=== PATIENT | female | born 1950 | race Caucasian/White ===

== ENCOUNTER 2018-10-13 13:04 | Observation (INO) ==
[2018-10-13] MEDS ORDERED: Aspirin 81 MG TAB.CHEW PO ONE (13:23)
[2018-10-13] MEDS ORDERED: Ondansetron 4 MG/2 ML VIAL IVP ONE (13:24)
[2018-10-13 13:42] LABS: Basophils % 0.2 %; Eosinophils # 0.1 K/mcL (0.0-0.6); Eosinophils % 0.6 %; Immature Granulocytes % 0.3 % (0-4); Lymphocytes # 1.1 K/mcL (0.6-4.6); Lymphocytes % 11.4 %; Mean Corpuscular HGB Conc 31.7 g/dL (31.6-35.5); Mean Corpuscular Hemoglobin 28.6 pg (28.0-33.3); Mean Corpuscular Volume 90.1 fL (83.0-100.0); Monocytes # 0.6 K/mcL (0.0-1.3); Monocytes % 6.2 %; Neutrophils # 7.6 K/mcL (1.6-8.9); Platelet Count 301 K/mcL (140-400); Red Blood Count 4.55 M/mcL (3.82-4.97); Red Cell Distribution Width 15.5 % (11.5-14.5); Segmented Neutrophils % 81.3 %; White Blood Count 9.3 K/mcL (4.3-11.1)
[2018-10-13] MEDS: Nitroglycerin 0.4 MG TAB.SUBL SL PRN ×2 (13:42→13:49)
--- NOTE | 2018-10-13 13:48 | Emergency Department Note ---
Disposition Clinical Impression: Chest pain Qualifiers: Chest pain type: unspecified Qualified Code(s): R07.9 - Chest pain, unspecified Disposition: Admitted As Inpatient Condition: Fair Time of Disposition: 15:19 General Adult HPI - General Stated complaint: chest pain Time Seen by Provider: 10/13/18 13:09 Source: patient Limitations: no limitations - History of Present Illness Pain Scale: 4 - Related Data Home Medications Medication Instructions Recorded Confirmed Lisinopril [Zestril] 20 mg PO BID 06/18/15 10/13/18 Albuterol Sulfate [Albuterol 1 puff IH Q4H PRN 03/07/17 10/13/18 Inhaler] Cholecalciferol (D-3) [Vitamin D] 1,000 unit PO DAILY 03/07/17 10/13/18 Furosemide [Lasix] 40 mg PO DAILY 03/07/17 10/13/18 Isosorbide MONOnitrate (24 HR) 120 mg PO DAILY 03/07/17 10/13/18 [Imdur] Allergies Allergy/AdvReac Type Severity Reaction Status Date / Time Cortisone Allergy Dizziness Verified 02/09/16 07:22 Past Medical History - Past Medical History Medical history: Reports: cancer, CHF, CVA, diabetes, hyperlipidemia, hypertension, myocardial infarction, renal disease Surgical history: Reports: appendectomy, cholecystectomy, hip replacement, hyst erectomy, knee replacement, other Psychiatric history: Reports: no psych history - Social History Smoking Status: Never smoker Smokeless Tobacco Status: No Alcohol use: Reports: none Drug use: Reports: none Physical Exam - General Limitations: no limitations General appearance: alert, in no apparent distress Course Vital Signs Temperature 98.7 F 10/13/18 13:12 Pulse Rate 73 10/13/18 13:12 Respiratory Rate 12 10/13/18 13:12 Blood Pressure 155/83 10/13/18 13:12 O2 Sat by Pulse Oximetry 100 10/13/18 13:12 Temperature 98.7 F 10/13/18 13:12 Pulse Rate 59 10/13/18 14:59 Respiratory Rate 14 10/13/18 14:59 Blood Pressure 136/71 10/13/18 14:59 O2 Sat by Pulse Oximetry 100 10/13/18 14:59 Oxygen Delivery Oxygen Delivery Room Air Medical Decision Making - Lab Data Result diagrams: 10/13/18 13:20 10/13/18 13:20 Lab Results 10/13/18 10/13/18 Range/Units 13:20 13:20 WBC 9.3 (4.3-11.1) K/mcL RBC 4.55 (3.82-4.97) M/mcL Hgb 13.0 (11.5-15.4) g/dL Hct 41.0 (35.3-44.9) % MCV 90.1 (83.0-100.0) fL MCH 28.6 (28.0-33.3) pg MCHC 31.7 (31.6-35.5) g/dL RDW 15.5 H (11.5-14.5) % Plt Count 301 (140-400) K/mcL MPV 10.0 (9.4-12.4) fL Immature Gran % 0.3 (0-4) % Seg Neutrophils % 81.3 % Lymphocytes % 11.4 % Monocytes % 6.2 % Eosinophils % 0.6 % Basophils % 0.2 % Neutrophils # 7.6 (1.6-8.9) K/mcL Lymphocytes # 1.1 (0.6-4.6) K/mcL Monocytes # 0.6 (0.0-1.3) K/mcL Eosinophils # 0.1 (0.0-0.6) K/mcL Basophils # 0.0 (0.0-0.2) K/mcL Sodium 140 (136-145) mEq/L Potassium 4.2 (3.5-5.1) mEq/L Chloride 103 (98-107) mEq/L Carbon Dioxide 26 (23-29) mEq/L BUN 22 (8-23) mg/dL Creatinine 1.07 (0.60-1.20) mg/dL Est GFR ( Amer) > 60 (> 60) Est GFR (Non-Af Amer) 51 L (> 60) BUN/Creatinine Ratio 21 (6-26) Glucose 97 (70-105) mg/dL Calculated Osmolality 293 (280-300) Calcium 9.2 (8.6-10.3) mg/dL Total Bilirubin 0.5 (0.3-1.0) mg/dL Direct Bilirubin 0.2 (0.0-0.2) mg/dL Indirect Bilirubin 0.3 (0.0-1.2) mg/dL AST 23 (13-39) Units/L ALT 30 (7-52) Units/L Alkaline Phosphatase 92 (34-104) Units/L Troponin I < 0.03 (< 0.04) ng/mL Serum Total Protein 6.8 (6.4-8.9) g/dL Albumin 4.3 (3.5-5.7) g/dL Globulin 2.5 (2.4-3.5) g/dL Albumin/Globulin Ratio 1.7 (1.1-2.2) Lipase 41 (11-82) Units/L Attestation Statement - Attestation Attestation: I examined this patient and my medical decision-making was reviewed with the Resident Physician. I agree with the documented findings, disposition and treatment plan as described except to the extent set forth below. Patient resisted ED with a chief complaint of chest heaviness. Onset this morning while she was getting ready to go to breakfast with her son. History of an [place]. No stents. States her last was one year ago and she was told that she had small blood vessels. She is in no acute distress on examination with stable vital signs. Heart regular lungs clear. Plan. Cardiac workup. Initial EKG does not show any acute ST segment changes. EKG reviewed with the resident. Cardiac workup unremarkable. Patient was offered nitroglycerin. She is pain- free at this time. Admitted to medicine for further cardiac workup secondary risk Chest X-Ray 10/13/18 13:11 IMPRESSION: Normal chest x-ray D/ / Michele Salvador MD / Michele Salvador MD Interpreting Provider: Michele Salvador MD
--- NOTE | 2018-10-13 13:56 | Emergency Department Note ---
Disposition Clinical Impression: Chest pain Qualifiers: Chest pain type: unspecified Qualified Code(s): R07.9 - Chest pain, unspecified Disposition: Admitted As Inpatient Condition: Fair Referrals: Jhoan Broussard DO [Primary Care Provider] - Time of Disposition: 14:21 General Adult HPI - General Chief complaint: ED Chest Pain Stated complaint: chest pain Time Seen by Provider: 10/13/18 13:09 Source: patient Mode of arrival: ambulatory Limitations: no limitations Nursing Notes Reviewed: Yes Vital Signs Reviewed: Yes - History of Present Illness HPI Narrative: Patient is a 67-year-old female with a past medical history of CHF, cardiac catheterization, HLD, `DM, HTN, and renal disease presents to the ED for evaluation of chest pain that started approximately 3 hours prior to arrival. Patient states that this morning prior to getting a shower she had multiple episodes of nonbloody diarrhea with nausea and then after showering she became diaphoretic with diffuse chest pressure radiating into the left arm and left jaw. She states that her chest pain is worse with exertion and decreases with rest. States that she has had a cardiac catheterization but no stents. Pain Scale: 4 - Related Data Home Medications Medication Instructions Recorded Confirmed Atorvastatin [Lipitor] 40 mg PO DAILY #0 06/18/15 03/07/17 Lisinopril [Zestril] 20 mg PO BID 06/18/15 03/07/17 Propranolol HCl [Inderal LA] 160 mg PO DAILY #0 06/18/15 03/07/17 Multivit-Min/FA/Lycopen/Lutein 1 tab PO DAILY 02/09/16 03/07/17 [Adults 50+ Multivitamin Tablet] [place]-3/Dha/Epa/Fish Oil [Fish Oil 1 cap PO DAILY 02/09/16 03/07/17 1,000 mg Softgel] Albuterol Sulfate [Albuterol 1 puff IH Q4H PRN 03/07/17 03/07/17 Inhaler] Cholecalciferol (D-3) [Vitamin D] 1,000 unit PO DAILY 03/07/17 03/07/17 Furosemide [Lasix] 40 mg PO DAILY 03/07/17 03/07/17 Isosorbide MONOnitrate (24 HR) 120 mg PO DAILY 03/07/17 03/07/17 [Imdur] Lactobacillus Combination No.8 1 cap PO BID 03/07/17 03/07/17 [Adult Probiotic] Potassium Chloride [K-Tab ER] 20 meq PO DAILY 03/07/17 03/07/17 Previous Rx's Medication Instructions Recorded Aspirin 81 mg PO DAILY #30 tab.chew 06/19/15 Allergies Allergy/AdvReac Type Severity Reaction Status Date / Time Cortisone Allergy Dizziness Verified 02/09/16 07:22 All systems ED: reviewed and negative except as stated. Review of Systems: As Per HPI Constitutional: Denies: fever, chills Cardiovascular: Reports: chest pain. Denies: palpitations, dyspnea on exertion, edema, syncope, paroxysmal nocturnal dyspnea Respiratory: Denies: cough, dyspnea, wheezes, sputum production Gastrointestinal: Reports: nausea, diarrhea. Denies: abdominal pain, hematemesis, melena, hematochezia Musculoskeletal: Denies: back pain Past Medical History - Past Medical History Attestation: Yes The following information was validated with the patient. Medical history: Reports: cancer, CHF, CVA, diabetes, hyperlipidemia, hypertension, myocardial infarction, renal disease Surgical history: Reports: appendectomy, cholecystectomy, hip replacement, hysterectomy, knee replacement, other Psychiatric history: Reports: no psych history - Social History Smoking Status: Never smoker Smokeless Tobacco Status: No Alcohol use: Reports: none Drug use: Reports: none Physical Exam CONSTITUTIONAL: Clammy; A&O X 3. HEAD: Normocephalic; atraumatic EYES: PERRL, no scleral icterus NOSE: The nose is normal in appearance without rhinorrhea NECK: No JVD or distended neck veins RESP: Normal chest excursion with respiration; breath sounds clear and equal bilaterally; no wheezes, rhonchi, or rales CARD: Regular rhythm, without murmurs, rub or gallop ABD: Non-distended; non-tender, soft, without rigidity, rebound or guarding,no pulsatile mass CHEST: No pain with palpation SKIN: Normal for age and race; warm and dry without diaphoresis ; no apparent lesions EXTREMITIES: Pulses are 2 plus and equal times 4 extremities, no peripheral edema or calf muscle pain - General Limitations: no limitations General appearance: alert, in no apparent distress Course Course Narrative: Patient will undergo evaluation for chest pain. She reports history of cardiac catheterization with no stents placed. Prior to obtaining the troponin the patient's HEART score is 5 points which is moderate indicating that regardless of the results of the workup patient will require admission. She will receive a full dose of aspirin undergo nitroglycerin trial. Her initial EKG is kae schemic. PE was considered but the patient is not describing any chest pain or heart rate is within normal limits and she has no recent travel, recent surgeries she is not on estrogen and she has no history of blood clots. - Reevaluation(s) Reevaluation #1: Patient's chest pain completely resolved after 2 doses of nitroglycerin. Her lab work was unremarkable. Chest x-ray also unremarkable. Discussed with the patient her risk factors and indications for admission for further evaluation of her chest pain at this time she agrees with that plan. Discussed with the hospitalist on-call and they agree to accept the patient. Time: 14:19 Vital Signs Temperature 98.7 F 10/13/18 13:12 Pulse Rate 73 10/13/18 13:12 Respiratory Rate 12 10/13/18 13:12 Blood Pressure 155/83 10/13/18 13:12 O2 Sat by Pulse Oximetry 100 10/13/18 13:12 Temperature 98.7 F 10/13/18 13:12 Pulse Rate 69 10/13/18 13:48 Respiratory Rate 14 10/13/18 13:22 Blood Pressure 139/97 10/13/18 13:48 O2 Sat by Pulse Oximetry 99 10/13/18 13:22 Oxygen Delivery Oxygen Delivery Room Air Medical Decision Making - Medical Records Medical records reviewed: Yes I reviewed the patient's medical records. - Lab Data Lab results reviewed: Yes I reviewed the patient's lab results. Result diagrams: 10/13/18 13:20 10/13/18 13:20 Lab Results 10/13/18 10/13/18 Range/Units 13:20 13:20 WBC 9.3 (4.3-11.1) K/mcL RBC 4.55 (3.82-4.97) M/mcL Hgb 13.0 (11.5-15.4) g/dL Hct 41.0 (35.3-44.9) % MCV 90.1 (83.0-100.0) fL MCH 28.6 (28.0-33.3) pg MCHC 31.7 (31.6-35.5) g/dL RDW 15.5 H (11.5-14.5) % Plt Count 301 (140-400) K/mcL MPV 10.0 (9.4-12.4) fL Immature Gran % 0.3 (0-4) % Seg Neutrophils % 81.3 % Lymphocytes % 11.4 % Monocytes % 6.2 % Eosinophils % 0.6 % Basophils % 0.2 % Neutrophils # 7.6 (1.6-8.9) K/mcL Lymphocytes # 1.1 (0.6-4.6) K/mcL Monocytes # 0.6 (0.0-1.3) K/mcL Eosinophils # 0.1 (0.0-0.6) K/mcL Basophils # 0.0 (0.0-0.2) K/mcL Sodium 140 (136-145) mEq/L Potassium 4.2 (3.5-5.1) mEq/L Chloride 103 (98-107) mEq/L Carbon Dioxide 26 (23-29) mEq/L BUN 22 (8-23) mg/dL Creatinine 1.07 (0.60-1.20) mg/dL Est GFR ( Amer) > 60 (> 60) Est GFR (Non-Af Amer) 51 L (> 60) BUN/Creatinine Ratio 21 (6-26) Glucose 97 (70-105) mg/dL Calculated Osmolality 293 (280-300) Calcium 9.2 (8.6-10.3) mg/dL Total Bilirubin 0.5 (0.3-1.0) mg/dL Direct Bilirubin 0.2 (0.0-0.2) mg/dL Indirect Bilirubin 0.3 (0.0-1.2) mg/dL AST 23 (13-39) Units/L ALT 30 (7-52) Units/L Alkaline Phosphatase 92 (34-104) Units/L Troponin I < 0.03 (< 0.04) ng/mL Serum Total Protein 6.8 (6.4-8.9) g/dL Albumin 4.3 (3.5-5.7) g/dL Globulin 2.5 (2.4-3.5) g/dL Albumin/Globulin Ratio 1.7 (1.1-2.2) Lipase 41 (11-82) Units/L - Radiology Data Radiology results reviewed: Yes I reviewed the patient's radiology results. Chest X-Ray 10/13/18 13:11 IMPRESSION: Normal chest x-ray D/ / Michele Salvador MD / Michele Salvador MD Interpreting Provider: Michele Salvador MD - EKG Data EKG #1 EKG attestation: Yes I reviewed and interpreted this EKG. EKG results narrative: EKG done at 13:34 shows sinus rhythm at a rate of 64 bpm. Normal axis. Intervals within normal limits. No signs of ST elevation, ST depression or Q waves present. Unchanged from prior EKG in February 2017
[2018-10-13 14:04] LABS: Alanine Aminotransferase 30 Units/L (7-52); Albumin 4.3 g/dL (3.5-5.7); Albumin/Globulin Ratio 1.7 (1.1-2.2); Alkaline Phosphatase 92 Units/L (34-104); Aspartate Amino Transferase 23 Units/L (13-39); BUN/Creatinine Ratio 21 (6-26); Bilirubin,Direct 0.2 mg/dL (0.0-0.2); Bilirubin,Indirect 0.3 mg/dL (0.0-1.2); Bilirubin,Total 0.5 mg/dL (0.3-1.0); Blood Urea Nitrogen 22 mg/dL (8-23); Calcium 9.2 mg/dL (8.6-10.3); Carbon Dioxide 26 mEq/L (23-29); Chloride 103 mEq/L (98-107); Globulin 2.5 g/dL (2.4-3.5); Glucose 97 mg/dL (70-105); Lipase 41 Units/L (11-82); Osmolality,Calculated 293 (280-300); Potassium 4.2 mEq/L (3.5-5.1); Sodium 140 mEq/L (136-145); Total Protein 6.8 g/dL (6.4-8.9); Troponin I < 0.03 ng/mL (< 0.04); eGFR For African Americans > 60 (> 60); eGFR For Non-African Americans 51 (> 60)
--- NOTE | 2018-10-13 16:31 | Internal Med History&Physical ---
Date of Encounter: 10/13/18 Time of Encounter: 16:12 Internal Medicine - H&P: HPI Chief complaint: chest pain Admitted From: Home Plans for Post Hospital Care: Home History of present illness: Ms. Brooks is a 67 year old female pats medical HTN, HLD, Diabetes type II, Obesity, never smoked, CKD, CHF (One time 4 years ago), [place] (pt states she was told here in the ED years ago that she has had an [place]), denies prior history of stents. Pt presented with complaint of chest pain. at bedside. Pt states she was fine after a shower this morning. States when she got out of the shower she started feeling sick and dizzy. Then chest started hurting which radiated into her left arm, up into her jaw and teeth and states " I just couldn't seem to shake it." She describes chest sensation as a pressure and states " not really pain." States sensation in the her neck and arm was painful. Pain scale rated 7/10 at it's worst but barely there now states about 1-2/10. She reports being SOB " a little." States she was also diaphoretic. Pt states she took her blood pressure medications this morning. States she stopped taking ASA begging it "tore up her stomach." Reports having history of ulcers. She states she recently had her cholesterol medication changed. Pt also reports having diarrhea and feeling nauseous. States she had abdominal tenderness across her mid abdomen. She denies having any fever or chills. She denies having any blood in her stool. Denies dysuria, urinary urgency but denies frequency. In ED She states Nitro given in the emergency department helped relieve her pain. WBC 9.3, Hgb 13.0, Hct 41.0, plt 301. Na 140, K 4.2, BUN 22, Cr 1.07. Troponin <0.03 LFT's normal, Lipase 41. Past Med Surg Social Fam HX - Past Medical History Medical history: cancer, CHF, CVA, diabetes, hyperlipidemia, hypertension, myocardial infarction, renal disease Psychiatric history: no psych history - Past Surgical History Surgical History: appendectomy, cholecystectomy, hip replacement, hysterectomy, knee replacement, other Additional surgical history: spine surgery - Social History Smoking Status: Never smoker Smokeless Tobacco Status: No Alcohol use: none Drug use: none - Family History Mother Hx Family Cardiac Disorders: Yes ([place], HTN) Hx Family Cancer: Yes (Bone) Hx Family Endocrine Disorder: Yes (DM) Father Hx Family Cardiac Disorders: Yes (Stroke) Hx Family Cancer: Yes (Lung) Internal Medicine - H&P: Meds Lisinopril [Zestril] 20 mg PO BID 06/18/15 [History] Albuterol Sulfate [Albuterol Inhaler] 1 puff IH Q4H PRN 03/07/17 [History] Cholecalciferol (D-3) [Vitamin D] 1,000 unit PO DAILY 03/07/17 [History] Furosemide [Lasix] 40 mg PO DAILY 03/07/17 [History] Isosorbide MONOnitrate (24 HR) [Imdur] 120 mg PO DAILY 03/07/17 [History] Atorvastatin [Lipitor] 40 mg PO HS 10/13/18 [History] Desvenlafaxine [Desvenlafaxine ER] 100 mg PO DAILY 10/13/18 [History] Diltiazem CD (24hr) [Cardizem CD] 180 mg PO DAILY 10/13/18 [History] Allergy/AdvReac Type Severity Reaction Status Date / Time Cortisone Allergy Dizziness Verified 02/09/16 07:22 All Systems PM: A 10-system review of systems was performed and is negative for pertinent findings except as documented above in the HPI. - Constitutional Vitals: Temp Pulse Resp BP Pulse Ox 98.7 F 59 14 136/71 100 10/13/18 13:12 10/13/18 14:59 10/13/18 14:59 10/13/18 14:59 10/13/18 14:59 General appearance: Present: A&O X 3, no acute distress, obese Exam: . - Head Head exam: Present: atraumatic, normocephalic - Eye Eye exam: Present: PERRL, conjuntiva pink, sclera anicteric Pupils: Present: PERRL - Neck Neck exam general surgery: Present: supple, trachea midline. Absent: lymphadenopathy - Respiratory Respiratory exam: Present: CTAB. Absent: accessory muscle use, rales, rhonchi, wheezes - Cardiovascular Cardiovascular exam: Present: RRR, +S1, +S2. Absent: diastolic murmur, gallop, rubs, systolic murmur - GI/Abdominal GI/Abdominal exam: Present: normal bowel sounds, soft, no peritoneal signs. Absent: distended, tenderness - Extremities Exam Extremities exam: Present: pedal edema, warm, radial pulses palpable and symmetrical. Absent: calf tenderness, cyanotic - Neurological Exam Neurological exam: Present: CN II-XII intact, oriented X3, no focal deficits. Absent: pronater drift, facial droop, speech deficit - Skin Skin exam: Present: dry, intact Internal Med - H&P Results - Labs CBC & Chem 7: 10/13/18 13:20 10/13/18 13:20 Labs: Short CBC 10/13/18 Range/Units 13:20 WBC 9.3 (4.3-11.1) K/mcL Hgb 13.0 (11.5-15.4) g/dL Hct 41.0 (35.3-44.9) % Plt Count 301 (140-400) K/mcL Neutrophils # 7.6 (1.6-8.9) K/mcL BMP 10/13/18 13:20 Sodium 140 Potassium 4.2 Chloride 103 Carbon Dioxide 26 BUN 22 Creatinine 1.07 Glucose 97 Calcium 9.2 Cardiac Enzymes 10/13/18 Range/Units 13:20 Troponin I < 0.03 (< 0.04) ng/mL Liver Function 10/13/18 Range/Units 13:20 Total Bilirubin 0.5 (0.3-1.0) mg/dL Direct Bilirubin 0.2 (0.0-0.2) mg/dL AST 23 (13-39) Units/L ALT 30 (7-52) Units/L Alkaline Phosphatase 92 (34-104) Units/L Albumin 4.3 (3.5-5.7) g/dL - Impressions ITS Impressions Chest X-Ray 10/13/18 13:11 IMPRESSION: Normal chest x-ray D/ / Michele Salvador MD / Michele Salvador MD Interpreting Provider: Michele Salvador MD - Assessment and Plan (1) Chest pain Current Visit: Yes Status: Acute Assessment and plan: Troponin <0.03. Will cycle troponin. EKG showed VR [address] or T wave abnormalities. She states she has had multiple stress test in the past that have been negative. Per cardiology note in 2016, Has chronic underlying chest pain. Appears to have failed Ranexa therapy in the past for suspected microvascular disease. She has also been seen in [place] at [facility] before. At [facility] 2017 neg and Echo 2016 normal, results below. Given ASA 324 mg PO x one in ED. She states ASA tears up her stomach so she stopped taking it. Will hold off on any more ASA for now. Will place on telemetry for close monitoring. Nitro SL PRN. Will check D dimer. Heart cath 03/07/17 Impressions: Coronary arteries are angiographically normal. The left ventricle is normal and has normal contractility EF 65% Coronary Dominance: right Lesion Findings/Interventions * Left Main Coronary Artery The LMCA is angiographically free of disease. * Left Anterior Descending The LAD is angiographically free of disease. Mid/distal LAD small vessel. The 1st Diagonal is angiographically free of disease. * Circumflex The Circumflex is angiographically free of disease. The 1st Marginal is angiographically free of disease. * Right Coronary Artery The RCA is angiographically free of disease. The Right PDA is angiographically free of disease. Echo 02/09/16 Impressions: Normal LV chamber size, wall thickness, and systolic function. LVEF 60%. Normal right ventricular structure and function. No significant valvular dysfunction. Unable to estimate RVSP due to lack of TR jet. Qualifiers: Chest pain type: unspecified Qualified Code(s): R07.9 - Chest pain, unspecified (2) HTN (hypertension) Current Visit: No Status: Chronic Assessment and plan: Pt's BP elevated in ED and could possibly contribute to CP Need her medications clarified with her pharmacy. Diltiazem, Lisinopril, imdur Qualifiers: Hypertension type: essential hypertension Qualified Code(s): I10 - [place] l (primary) hypertension (3) Diabetes type 2, controlled Current Visit: Yes Status: Acute Assessment and plan: Pt states she is on Trulicity for this. Not listed on home med list. Glucose 97. Hgb A1C 6.1, 05/04/18 Will check hgb A1c. Will hold off on Insulin for now Will place on diabetic diet and monitor glucose BID. Qualifiers: Qualified Code(s): E11.9 - Type 2 diabetes mellitus without complications (4) CKD (chronic kidney disease) Current Visit: No Status: Chronic Assessment and plan: Cr 1.07 and stable. Will monitor PRN Qualifiers: Chronic kidney disease stage: stage 3 (moderate) Qualified Code(s): N18.3 - Chronic kidney disease, stage 3 (moderate) (5) Edema Current Visit: Yes Status: Acute Assessment and plan: On Lasix Qualifiers: Qualified Code(s): R60.9 - Edema, unspecified - Time Spent With Patient Total time spent is greater than 50% in coordination of care (as documented) at patient's floor/unit and/or counseling patient: less than 15 minutes
[2018-10-13] MEDS ORDERED: Nitroglycerin 0.4 MG TAB.SUBL SL PRN (16:56)
[2018-10-13] MEDS ORDERED: D5% in Water 1,000 ML IVC PRN (17:57)
[2018-10-13] MEDS ORDERED: *HR* Dextrose 50 % in Water (Syg) 50 ML SYRINGE IVP PRN (17:57)
[2018-10-13] MEDS ORDERED: Dextrose Gel 15 GM/37.5 ML TUBE PO PRN ×2 (17:57)
[2018-10-13] MEDS: Insulin LISPRO 300 UNITS/3 ML VIAL SQ SCH (18:48)
[2018-10-14] MEDS: Insulin LISPRO 300 UNITS/3 ML VIAL SQ SCH ×4 (01:31→17:01)
[2018-10-14 02:39] LABS: Basophils % 0.3 %; Eosinophils # 0.1 K/mcL (0.0-0.6); Eosinophils % 1.4 %; Hematocrit 36.8 % (35.3-44.9); Hemoglobin 11.6 g/dL (11.5-15.4); Immature Granulocytes % 0.3 % (0-4); Lymphocytes # 1.5 K/mcL (0.6-4.6); Lymphocytes % 18.8 %; Mean Corpuscular HGB Conc 31.5 g/dL (31.6-35.5); Mean Corpuscular Hemoglobin 28.2 pg (28.0-33.3); Mean Corpuscular Volume 89.5 fL (83.0-100.0); Mean Platelet Volume 10.3 fL (9.4-12.4); Monocytes # 0.6 K/mcL (0.0-1.3); Monocytes % 7.5 %; Neutrophils # 5.6 K/mcL (1.6-8.9); Platelet Count 261 K/mcL (140-400); Red Blood Count 4.11 M/mcL (3.82-4.97); Red Cell Distribution Width 15.6 % (11.5-14.5); Segmented Neutrophils % 71.7 %; White Blood Count 7.8 K/mcL (4.3-11.1)
[2018-10-14 02:47] LABS: Prothrombin Time 11.5 Seconds (9.4-12.1)
[2018-10-14 02:59] LABS: Albumin 3.7 g/dL (3.5-5.7); Albumin/Globulin Ratio 1.7 (1.1-2.2); Bilirubin,Total 0.4 mg/dL (0.3-1.0); Chol/HDL Ratio 2.4 (0-4.9); Globulin 2.2 g/dL (2.4-3.5); Total Protein 5.9 g/dL (6.4-8.9)
[2018-10-14] MEDS: Furosemide 40 MG TABLET PO SCH (10:34)
[2018-10-14] MEDS: Diltiazem CD (24hr) 180 MG CAPSULE PO SCH (10:34)
[2018-10-14] MEDS: Venlafaxine XR (24 HR) 75 MG CAP.ER.24H PO SCH (10:39)
[2018-10-14] MEDS: Lisinopril 20 MG TABLET PO SCH (10:39)
[2018-10-14 10:59] LABS: Estimated Average Glucose 131 mg/dl
--- NOTE | 2018-10-14 13:54 | Electrocardiograph Report ---
[address] [address] Test Date: 2018-10-13 Pat Name: Ronel Brooks Department: [id number] Room: 3B32 Gender: F Voice Writing Reporter: : 1950 Requested By: Whitney See Order Number: [id number] Reading MD: Allan Martin Measurements Intervals [place] Rate: 64 P: -16 NC: 144 QRS: 34 QRSD: 97 T: 89 QT: 408 QTc: 421 Interpretive Statements Sinus rhythm Low voltage, precordial leads Abnormal R wave progression, early transition Borderline T abnormalities, lateral leads Electronically Signed On 10-14-2018 13:52:15 EDT by Allan Martin
--- NOTE | 2018-10-14 15:48 | Internal Med Progress Note ---
Hospitalist Progress Note - Encounter Date of Encounter: 10/14/18 Time of Encounter: 15:47 - Subjective Interval History: Pt denies CP or SOB. She denies palpitations. Denies fever, chills, N/V or diarrhea. LE edema improved from yesterday - Exam Vitals: Temp Pulse Resp BP Pulse Ox 98.2 F 70 16 129/77 96 10/14/18 15:34 10/14/18 15:34 10/14/18 15:34 10/14/18 15:34 10/14/18 15:34 Exam: General appearance: Present: A&O X 3, no acute distress, obese Exam: Head exam: Present: atraumatic, normocephalic Eye exam: Present: PERRL, conjuntiva pink, sclera anicteric Pupils: Present: PERRL Neck exam general surgery: Present: supple, trachea midline. Absent: lympha denopathy Respiratory exam: Present: CTAB. Absent: accessory muscle use, rales, rhonchi, wheezes Cardiovascular exam: Present: RRR, +S1, +S2. Absent: diastolic murmur, gallop, rubs, systolic murmur GI/Abdominal exam: Present: normal bowel sounds, soft, no peritoneal signs. Absent: distended, tenderness Extremities exam: Present: pedal edema, warm, radial pulses palpable and symmetrical. Absent: calf tenderness, cyanotic Neurological exam: Present: CN II-XII intact, oriented X3, no focal deficits. Absent: pronater drift, facial droop, speech deficit Skin exam: Present: dry, intact - Assessment and Plan (1) Chest pain Current Visit: Yes Status: Acute Assessment and Plan: Troponin <0.03. Will cycle troponin. EKG showed VR [address] or T wave abnormalities. She states she has had multiple stress test in the past that have been negative. Per cardiology note in 2016, Has chronic underlying chest pain. Appears to have failed Ranexa therapy in the past for suspected microvascular disease. She has also been seen in [place] at [facility] before. At [facility] 2017 neg and Echo 2016 normal, results below. Given ASA 324 mg PO x one in ED. She states ASA tears up her stomach so she stopped taking it. Will hold off on any more ASA for now. Will continue on telemetry for close monitoring. Nitro SL PRN. D dimer elevated so will check VQ scan. Heart cath 03/07/17 Impressions: Coronary arteries are angiographically normal. The left ventricle is normal and has normal contractility EF 65% Coronary Dominance: right Lesion Findings/Interventions * Left Main Coronary Artery The LMCA is angiographically free of disease. * Left Anterior Descending The LAD is angiographically free of disease. Mid/distal LAD small vessel. The 1st Diagonal is angiographically free of disease. * Circumflex The Circumflex is angiographically free of disease. The 1st Marginal is angiographically free of disease. * Right Coronary Artery The RCA is angiographically free of disease. The Right PDA is angiographically free of disease. Echo 02/09/16 Impressions: Normal LV chamber size, wall thickness, and systolic function. LVEF 60%. Normal right ventricular structure and function. No significant valvular dysfunction. Unable to estimate RVSP due to lack of TR jet. (2) HTN (hypertension) Current Visit: No Status: Chronic Assessment and Plan: Pt's BP elevated in ED and could possibly contribute to CP Need her medications clarified with her pharmacy. Diltiazem, Lisinopril, imdur (3) Diabetes type 2, controlled Current Visit: Yes Status: Acute Assessment and Plan: Pt states she is on Trulicity once a week. Not listed on home med list. Glucose 97. Hgb A1C 6.1, 05/04/18 Will check hgb A1c. Will hold off on Insulin for now Will place on diabetic diet and monitor glucose BID. (4) CKD (chronic kidney disease) Current Visit: No Status: Chronic Assessment and Plan: Cr 1.07 and stable. Will monitor PRN (5) Edema Current Visit: Yes Status: Acute Assessment and Plan: On Lasix. B/L LE doppler ordered and pending. DVT Prophylaxis: Pt ambulates. SCD - Summary of Assessment and Plan Summary of Assessment and Plan: History of present illness: Ms. Brooks is a 67 year old female pats medical HTN, HLD, Diabetes type II, Obesity, never smoked, CKD, CHF (One time 4 years ago), VA (pt states she was told here in the ED years ago that she has had an VA), denies prior history of stents. Pt presented with complaint of chest pain. at bedside. Pt states she was fine after a shower this morning. States when she got out of the shower she started feeling sick and dizzy. Then chest started hurting which radiated into her left arm, up into her jaw and teeth and states " I just couldn't seem to shake it." She describes chest sensation as a pressure and states " not really pain." States sensation in the her neck and arm was painful. Pain scale rated 7/10 at it's worst but barely there now states about 1-2/10. She reports being SOB " a little." States she was also diaphoretic. Pt states she took her blood pressure medications this morning. States she stopped taking ASA begging it "tore up her stomach." Reports having history of ulcers. She states she recently had her cholesterol medication changed. - Time Spent with Patient Total time spent is greater than 50% in coordination of care (as documented) at patient's floor/unit and/or counseling patient: less than 15 minutes Plan of Care Discussed with: patient Internal Medicine: Result - Labs CBC & Chem 7: 10/14/18 01:55 10/14/18 01:55 Labs: Short CBC 10/14/18 Range/Units 01:55 WBC 7.8 (4.3-11.1) K/mcL Hgb 11.6 (11.5-15.4) g/dL Hct 36.8 (35.3-44.9) % Plt Count 261 (140-400) K/mcL Neutrophils # 5.6 (1.6-8.9) K/mcL BMP 10/14/18 01:55 Sodium 141 Potassium 4.0 Chloride 103 Carbon Dioxide 30 H BUN 23 Creatinine 1.20 Glucose 112 H Calcium 9.0 Cardiac Enzymes 10/13/18 10/13/18 10/14/18 Range/Units 17:05 23:13 01:55 Troponin I < 0.03 < 0.03 < 0.03 (< 0.04) ng/mL Liver Function 10/14/18 Range/Units 01:55 Total Bilirubin 0.4 (0.3-1.0) mg/dL AST 23 (13-39) Units/L ALT 26 (7-52) Units/L Alkaline Phosphatase 79 (34-104) Units/L Albumin 3.7 (3.5-5.7) g/dL - ABG Interpretation ABG results: PT/INR, D-dimer PT 11.5 Seconds (9.4-12.1) 10/14/18 01:55 1256 ng/mLFEU (0-500) H 10/13/18 17:23 - Impressions Impressions Pulmonary Perfusion Imaging 10/14/18 08:26 IMPRESSION: Low probability for pulmonary embolus. D/ / Damion Shi MD / Damion Shi MD Interpreting Provider: Damion Shi MD Consult Discharge Plan - Plan Referrals: Jhoan Broussard DO [Primary Care Provider] - (Appt has been requsted. ) (1) Chest pain Qualifiers: Chest pain type: unspecified Qualified Code(s): R07.9 - Chest pain, unspecified (2) HTN (hypertension) Qualifiers: Hypertension type: essential hypertension Qualified Code(s): I10 - Essential (primary) hypertension (3) Diabetes type 2, controlled Qualifiers: Qualified Code(s): E11.9 - Type 2 diabetes mellitus without complications (4) CKD (chronic kidney disease) Qualifiers: Chronic kidney disease stage: stage 3 (moderate) Qualified Code(s): N18.3 - Chronic kidney disease, stage 3 (moderate) (5) Edema Qualifiers: Qualified Code(s): R60.9 - Edema, unspecified
[2018-10-14] MEDS ORDERED: *HR* Enoxaparin 40 MG/0.4 ML SYRINGE SQ ONE (16:01)
[2018-10-14 20:10] LABS: Bilirubin,Urine Negative (Negative); Blood,Urine Negative (Negative); Clarity,Urine Clear (Clear); Color,Urine Yellow (Yellow); Glucose,Urine (UA) Normal (Normal); Ketones,Urine Negative (Negative); Leukocyte Esterase,Urine Negative (Negative); Nitrite,Urine Negative (Negative); Protein,Urine Negative (Neg-Trace); Specific Gravity,Urine 1.014 (1.010-1.025); Urobilinogen,Urine Normal (Normal)
[2018-10-14] MEDS ORDERED: Insulin LISPRO 300 UNITS/3 ML VIAL SQ SCH (21:00)
[2018-10-15] MEDS ORDERED: *HR* Enoxaparin 40 MG/0.4 ML SYRINGE SQ SCH (06:00)
[2018-10-15] MEDS: Insulin LISPRO 300 UNITS/3 ML VIAL SQ SCH ×2 (07:48→11:42)
[2018-10-15] MEDS: Furosemide 40 MG TABLET PO SCH (08:53)
[2018-10-15] MEDS: Venlafaxine XR (24 HR) 75 MG CAP.ER.24H PO SCH (08:53)
[2018-10-15] MEDS: Lisinopril 20 MG TABLET PO SCH (08:53)
[2018-10-15] MEDS: Diltiazem CD (24hr) 180 MG CAPSULE PO SCH (08:53)
--- NOTE | 2018-10-15 16:09 | Discharge Summary ---
Orders not resulted at time of discharge: Pending orders 10/13/18 13:11 ECG 12 lead ECG [ECG] Stat Date of Encounter: 10/15/18 Time of Encounter: 08:00 - Discharge Diagnosis (1) Chest pain Priority: Primary Status: Acute Assessment and Plan: 67 year old female pats medical HTN, HLD, Diabetes type II, Obesity, never smoked, CKD, CHF (One time 4 years ago), VT (pt states she was told here in the ED years ago that she has had an VT), denies prior history of stents. Pt presented with complaint of chest pain. She was noted to have a negative cardiac cath in 2017 and negative stress test in 2016. She had a V/Q scan done which was negative for PE, and ultrasound negative for DVT. She had an echo done showing no wall motion abnormalities. She was counseled on the need for a stress test but says she will follow up outpatient with Nacho Mahan. She was discharged in a stable condition Qualifiers: Chest pain type: unspecified Qualified Code(s): R07.9 - Chest pain, unspecified (2) HTN (hypertension) Priority: Primary Status: Chronic Qualifiers: Hypertension type: essential hypertension Qualified Code(s): I10 - Essential (primary) hypertension (3) CKD (chronic kidney disease) Priority: Primary Status: Chronic Qualifiers: Chronic kidney disease stage: stage 3 (moderate) Qualified Code(s): N18.3 - Chronic kidney disease, stage 3 (moderate) (4) Diabetes type 2, controlled Priority: Primary Status: Acute Qualifiers: Qualified Code(s): E11.9 - Type 2 diabetes mellitus without complications (5) Edema Priority: Primary Status: Acute Qualifiers: Qualified Code(s): R60.9 - Edema, unspecified Hospital course: Ms. Brooks is a 67 year old female - Time Spent with Patient Total time spent providing and/or coordinating discharge services: - Discharge Medications Prescriptions: Continued Lisinopril [Zestril] 20 mg PO BID Furosemide [Lasix] 40 mg PO DAILY Albuterol Sulfate [Proventil Inhaler] 1 puff IH Q4H PRN PRN Reason: Shortness Of Breath/Wheezing Isosorbide MONOnitrate (24 HR) [Imdur] 120 mg PO DAILY Cholecalciferol (D-3) [Vitamin D] 1,000 unit PO DAILY Atorvastatin [Lipitor] 40 mg PO HS Desvenlafaxine [Desvenlafaxine ER] 100 mg PO DAILY Diltiazem CD (24hr) [Cardizem CD] 180 mg PO DAILY Home Medications: Lisinopril [Zestril] 20 mg PO BID 06/18/15 [History] Albuterol Sulfate [Proventil Inhaler] 1 puff IH Q4H PRN 03/07/17 [History] Cholecalciferol (D-3) [Vitamin D] 1,000 unit PO DAILY 03/07/17 [History] Furosemide [Lasix] 40 mg PO DAILY 03/07/17 [History] Isosorbide MONOnitrate (24 HR) [Imdur] 120 mg PO DAILY 03/07/17 [History] Atorvastatin [Lipitor] 40 mg PO HS 10/13/18 [History] Desvenlafaxine [Desvenlafaxine ER] 100 mg PO DAILY 10/13/18 [History] Diltiazem CD (24hr) [Cardizem CD] 180 mg PO DAILY 10/13/18 [History] Allergies/Adverse Reactions: Allergy/AdvReac Type Severity Reaction Status Date / Time Cortisone Allergy Dizziness Verified 02/09/16 07:22 Date of admission: 10/13/18 15:42 Primary care physician: Jhoan Broussard, DO - Constitutional Vitals: Temp Pulse Resp BP Pulse Ox 98.3 F 67 17 144/85 93 10/15/18 11:10 10/15/18 11:10 10/15/18 11:10 10/15/18 11:10 10/15/18 11:10 General appearance: Present: A&O X 3, no acute distress, obese Exam: General appearance: Present: A&O X 3, no acute distress, obese Exam: Head exam: Present: atraumatic, normocephalic Eye exam: Present: PERRL, conjuntiva pink, sclera anicteric Pupils: Present: PERRL Neck exam general surgery: Present: supple, trachea midline. Absent: lymphadenopathy Respiratory exam: Present: CTAB. Absent: accessory muscle use, rales, rhonchi, wheezes Cardiovascular exam: Present: RRR, +S1, +S2. Absent: diastolic murmur, gallop, rubs, systolic murmur GI/Abdominal exam: Present: normal bowel sounds, soft, no peritoneal signs. Absent: distended, tenderness Extremities exam: Present: pedal edema, warm, radial pulses palpable and symmetrical. Absent: calf tenderness, cyanotic Neurological exam: Present: CN II-XII intact, oriented X3, no focal deficits. Absent: pronater drift, facial droop, speech deficit Skin exam: Present: dry, intact - Patient Status Disposition: Home, Self-Care Condition: Fair - Discharge Instructions Follow Up With: Jhoan Broussard DO [Primary Care Provider] - (Appt has been requsted. ) Forms: ED Satisfaction Letter
[2018-10-15 16:36] VITALS: BP 144/75
--- NOTE | 2018-10-17 13:44 | Electrocardiograph Report ---
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
== END 2018-10-15 17:00 | disposition home or self-care (01) ==
LOC: EMEROOARM 13:04 → 3BNU 13:04 → INTOOBSV 15:42 → OBSVTOIN 15:42 → 3BNU 17:02
PROVIDERS: ADMIT Internal Medicine Nephrology; ATTEND Internal Medicine Nephrology